=== PATIENT | female | born 1970 | race Caucasian/White ===

== ENCOUNTER → 2017-05-12 | Day surgery (SDC) | payer OTHER ==
[~2017-05-12] VITALS: Ht 157.5 cm; Wt 79.4 kg
[~2017-05-12] MED LIST: CALCIUM 600 +1 EA10 PO; CALCIUM600 M3 PO; FISH OIL 1,0001 EAC2 PO; VITAMIN D2000 UNIT PO
--- NOTE | 2017-05-12 12:30 | Operative Report ---
Operative/Inv Procedure Report Surgery Date: 05/12/17 Name of Procedure: D&C hysteroscopy Pre-Operative Diagnosis: Thickened endometrium Post-Operative Diagnosis: Same Estimated Blood Loss: scant Surgeon/Tawer: Justin Baron MD Anesthesia: moderate sedation Operative/Procedure Note Note: The patient was taken to the operating room placed on the OR table in the dorsal supine position. When adequate anesthesia was given to her she was repositioned in a modified dorsal lithotomy. She was prepped and draped in usual sterile fashion. A weighted speculum was inserted into the vagina with help of a Lindy retractor a single-toothed tenaculum was attached to the anterior lip of the cervix. The cervix was injected with 1% lidocaine with epinephrine 2-1/2 mL in each quadrant. An endocervical curettage was performed. The uterus was sounded to 9 cm anteverted. The cervix was serially dilated to accommodate the hysteroscope. The hysteroscope was placed into the fundus and the saline infusion was activated. Sanchez of the uterus were mostly atrophic and there was some blood noted in the left ostia. The hysteroscope was then removed and a sharp curettage followed revealing a small amount of tissue. At the end of the procedure very hemostasis was verified and the isthmus removed. The patient was awakened and sent to recovery in good condition. All needle, sponge, and instrument counts were correct at the end of procedure 2.
== END ==
LOC: STS 02:20
DX: R93.8 Abnormal findings on diagnostic imaging of other specified body structures (principal)
CPT/HCPCS: 81025; J2250